=== PATIENT | male | born 1955 | race Two or more races ===

== ENCOUNTER 2023-05-08 18:21 | Inpatient (IN) | payer OTHER, MEDICAID ==
[~2023-05-08] VITALS: Ht 170.2 cm; Wt 64.7 kg
[2023-05-08] MEDS ORDERED: VANCOMYCIN PER PHARMACY 0 MG IV SCH (19:45)
[2023-05-08] MEDS ORDERED: SODIUM CHLORIDE 0.9% 1,000 ML IV ONE (19:45)
[2023-05-08] MEDS ORDERED: VANCOMYCIN 1GM/250ML 250 ML IV ONE (20:00)
[2023-05-08 20:01] LABS: Hematocrit 41.2 % (41.0-53.0); Hemoglobin 13.4 g/dL (13.5-17.5); Mean Corpuscular Hgb Conc. 32.6 g/dL (32.0-36.0); Red Blood Cells 4.79 10^6/uL (4.5-5.90); Red Cell Distribution Width 17.2 % (11.8-14.3); White Blood Cell 21.1 10^3/uL (4.4-10.8)
[2023-05-08 20:08] LABS: Basophils % (manual) 0 (0.0-2.0); Blast Cells 0; Eosinophils % (manual) 0 (0-7); Metamyelocytes % 0; Monocytes % (manual) 0 (0-12); Myelocytes % 0; Promyelocytes % 0; Reactive Lymphocytes 0
[2023-05-08 20:12] LABS: Albumin 3.3 g/dL (3.4-5.0); Calcium 9.3 mg/dL (8.5-10.1)
[2023-05-08 20:17] LABS: BUN/Creatinine Ratio 32.4 (10.0-20.0); Bilirubin, Total 0.7 mg/dL (0.2-1.0); Total Protein 8.1 g/dL (6.4-8.2)
[2023-05-08 21:27] LABS: Potassium 6.5 mmol/L (3.5-5.1)
[2023-05-08 21:30] LABS: Band Neutrophils % (manual) 4; Lymphocytes % (manual) 10 (10.0-50.0)
[2023-05-08] MEDS ORDERED: DEXTROSE (50%) 50ML SYRG IV ONE (21:45)
[2023-05-08] MEDS ORDERED: ALBUTEROL SULF 2.5 MG/0.5ML(0.5%) NEB SOLN NEB ONE (21:45)
[2023-05-08] MEDS ORDERED: SODIUM BICARBONATE 8.4% INJ 50ML SYRINGE IV ONE (21:45)
[2023-05-08] MEDS ORDERED: InsuLIN REG 1unit/0.01ml Soln (100units/ml) IV ONE (21:45)
[2023-05-08] MEDS ORDERED: CALCIUM GLUC 1,000mg/50ml-NS 50 ML IV ONE (21:45)
[2023-05-08] MEDS ORDERED: DEXTROSE 10% 250 ML IV ONE (23:15)
[2023-05-09 02:53] LABS: Urine Bacteria MANY /hpf (None Seen); Urine Blood 1+ /uL (Negative); Urine Mucus FEW (None Seen); Urine Specific Gravity 1.032 (1.001-1.035); Urine WBC 99 /hpf (0 - 3)
[2023-05-09 03:07] LABS: Alcohol, Urine < 3.0 mg/dL (0-10); Amphetamine Screen, Urine NEGATIVE (NEGATIVE); Barbiturate Scree,Urine NEGATIVE (NEGATIVE); Benzodiazephine Screen, Urine NEGATIVE (NEGATIVE); Cannabinoid Screen, Urine NEGATIVE (NEGATIVE); Cocaine Screen, Urine NEGATIVE (NEGATIVE); Opiate Scree,Urine POSITIVE (NEGATIVE); Phencyclidine Screen, Urine NEGATIVE (NEGATIVE)
[2023-05-09] MEDS ORDERED: SODIUM CHLORIDE 0.9% 500 ML IV ONE (03:15)
[2023-05-09] MEDS ORDERED: SODIUM CHLORIDE 0.9% 1,000 ML IV SCH (03:15)
[2023-05-09] MEDS ORDERED: AZITHROMYCIN 500MG/ 250ML 250 ML IV ONE (03:15)
[2023-05-09] MEDS ORDERED: ONDANSETRON HCL 4 MG/2 ML VIAL IV PRN (03:15)
[2023-05-09] MEDS ORDERED: MORPHINE SULFATE INJ 2 MG/ml SYRG IV PRN (03:15)
[2023-05-09] MEDS ORDERED: NITROGLYCERIN 0.4 MG SL TAB SL PRN (03:15)
[2023-05-09] MEDS ORDERED: ACETAMINOPHEN 325 MG TAB PO PRN (03:15)
[2023-05-09] MEDS ORDERED: DEXTROSE (50%) 50ML SYRG IV PRN (03:15)
[2023-05-09] MEDS ORDERED: ALBUTEROL SULF 2.5 MG/0.5ML(0.5%) NEB SOLN NEB PRN (03:15)
[2023-05-09] MEDS: cefTRIAXone 1GM/50ML D5W 50 ML IV SCH (05:34)
[2023-05-09] MEDS ORDERED: FUROSEMIDE 20 MG TAB PO SCH (06:00)
[2023-05-09 06:25] VITALS: BP 116/69
[2023-05-09] MEDS: ACCU-CHEK COMFORT CURVE STRIP VI SCH ×3 (06:31→18:01)
[2023-05-09] MEDS: InsuLIN REG 1unit/0.01ml Soln (100units/ml) SC SCH ×3 (06:31→18:00)
[2023-05-09] MEDS ORDERED: FLEET ENEMA(ADULT) 135 ML PR ONE (06:45)
[2023-05-09 06:57] LABS: BUN/Creatinine Ratio 36.7 (10.0-20.0)
[2023-05-09 09:00] VITALS: BP 108/53
[2023-05-09] MEDS ORDERED: SACUBITRIL-VALSARTAN 24mg/26mg TAB PO SCH (10:00)
[2023-05-09] MEDS: DOCUSATE SOD 100 MG CAP PO SCH ×2 (10:00→22:00)
[2023-05-09] MEDS ORDERED: CLOPIDOGREL BISULFATE 75 MG TAB PO SCH (10:00)
[2023-05-09 10:53] VITALS: BP 108/53
[2023-05-09 13:00] VITALS: BP 104/36
[2023-05-09] MEDS: SODIUM CHLORIDE 0.9% 1,000 ML IV SCH ×2 (13:30→20:10)
[2023-05-09] MEDS ORDERED: HEPARIN SODIUM (PORCINE) 5000 UNITS/ML 1ML VIAL IV ONE (17:00)
[2023-05-09 18:26] LABS: Magnesium 2.7 mg/dL (1.6-2.6); Phosphorus 2.4 mg/dL (2.5-4.90)
[2023-05-09 18:29] LABS: Basophils # (auto) 0 10 ^3/uL (0-0.2); Basophils % (auto) 0.3 % (0.0-2.0); Eosinophils # (auto) 0 10 ^3/uL (0-0.8); Eosinophils % (auto) 0.2 % (0.0-7.0); Hematocrit 31.8 % (41.0-53.0); Hemoglobin 10.5 g/dL (13.5-17.5); Lymphocytes % (auto) 15.2 % (10.0-50.0); Mean Corpuscular Hemoglobin 28.6 pg (28.0-32.0); Mean Corpuscular Hgb Conc. 32.9 g/dL (32.0-36.0); Mean Corpuscular Volume 86.8 fL (80.0-100.0); Monocytes % (auto) 7.8 % (0.0-12.0); Neutrophils # (auto) 10.1 10 ^3/uL (1.6-8.6); Neutrophils % (auto) 76.5 % (37.0-80.0); Red Blood Cells 3.66 10^6/uL (4.5-5.90); Red Cell Distribution Width 17.3 % (11.8-14.3); White Blood Cell 13.2 10^3/uL (4.4-10.8)
[2023-05-09 18:38] LABS: Cholesterol 78 mg/dL (< 200)
[2023-05-09 18:40] LABS: HDL Cholesterol 31 mg/dL (40-59); LDL Cholesterol 46 mg/dL (< 100); Triglycerides 60 mg/dL (< 150)
[2023-05-09 18:41] LABS: INR 1.04 (0.9-1.15); Partial Thromboplastin Time < 20.0 SEC (24.5-34.5)
[2023-05-09 19:27] LABS: Protein, Urine 76.3 mg/dL (0.0-11.9)
[2023-05-09] MEDS: HEPARIN DRIP/D5W 100UNITS/ML 250 ML IV SCH (19:44)
[2023-05-09 22:00] VITALS: BP 105/30
[2023-05-09] MEDS: ATORVASTATIN 20 MG TAB PO SCH (22:00)
[2023-05-10] MEDS: ACCU-CHEK COMFORT CURVE STRIP VI SCH ×4 (01:09→18:12)
[2023-05-10] MEDS: InsuLIN REG 1unit/0.01ml Soln (100units/ml) SC SCH ×4 (01:17→18:00)
[2023-05-10 02:07] LABS: INR 1.1 (0.9-1.15); Partial Thromboplastin Time 37.9 SEC (24.5-34.5)
[2023-05-10] MEDS: HEPARIN DRIP/D5W 100UNITS/ML 250 ML IV SCH ×2 (04:36→16:57)
[2023-05-10 05:00] VITALS: BP 107/51
[2023-05-10] MEDS: SODIUM CHLORIDE 0.9% 1,000 ML IV SCH ×4 (05:15→22:45)
[2023-05-10 07:35] LABS: Albumin 2.2 g/dL (3.4-5.0); Calcium 7.8 mg/dL (8.5-10.1); Potassium 4.8 mmol/L (3.5-5.1)
[2023-05-10 07:39] LABS: BUN/Creatinine Ratio 44.2 (10.0-20.0); Bilirubin, Total 0.4 mg/dL (0.2-1.0); Total Protein 6.4 g/dL (6.4-8.2)
[2023-05-10 07:50] LABS: Basophils # (auto) 0 10 ^3/uL (0-0.2); Basophils % (auto) 0.1 % (0.0-2.0); Eosinophils # (auto) 0 10 ^3/uL (0-0.8); Eosinophils % (auto) 0.1 % (0.0-7.0); Hematocrit 31.5 % (41.0-53.0); Hemoglobin 10.5 g/dL (13.5-17.5); Lymphocytes # (auto) 1.5 10 ^3/uL (0.4-5.4); Lymphocytes % (auto) 11.9 % (10.0-50.0); Mean Corpuscular Hemoglobin 28.7 pg (28.0-32.0); Mean Corpuscular Hgb Conc. 33.3 g/dL (32.0-36.0); Mean Corpuscular Volume 86.3 fL (80.0-100.0); Monocytes # (auto) 0.8 10 ^3/uL (0-1.3); Monocytes % (auto) 6.6 % (0.0-12.0); Neutrophils % (auto) 81.3 % (37.0-80.0); Red Blood Cells 3.65 10^6/uL (4.5-5.90); Red Cell Distribution Width 17.4 % (11.8-14.3); White Blood Cell 12.3 10^3/uL (4.4-10.8)
[2023-05-10 07:53] LABS: % Iron Saturation 17.4 % (20-55)
[2023-05-10 08:47] LABS: INR 1.21 (0.9-1.15)
[2023-05-10] MEDS: cefTRIAXone 1GM/50ML D5W 50 ML IV SCH (09:01)
[2023-05-10] MEDS: DOCUSATE SOD 100 MG CAP PO SCH ×2 (09:01→22:47)
[2023-05-10 09:20] LABS: Folate (Folic Acid) 8.49 ng/mL (5.38-24)
[2023-05-10] MEDS: AZITHROMYCIN 500MG/ 250ML 250 ML IV SCH (09:58)
[2023-05-10 11:13] LABS: INR 1.11 (0.9-1.15); Partial Thromboplastin Time 50.6 SEC (24.5-34.5)
[2023-05-10] MEDS ORDERED: VANCOMYCIN 1GM/250ML 250 ML IV ONE (11:30)
[2023-05-10] MEDS ORDERED: VANCOMYCIN PER PHARMACY 0 MG IV SCH (11:30)
[2023-05-10 16:52] VITALS: BP 117/62
[2023-05-10 17:44] LABS: INR 1.1 (0.9-1.15); Partial Thromboplastin Time 52.4 SEC (24.5-34.5)
[2023-05-10 22:00] VITALS: BP 109/65
[2023-05-10] MEDS: ATORVASTATIN 20 MG TAB PO SCH (22:47)
[2023-05-10 23:24] LABS: INR 1.1 (0.9-1.15)
[2023-05-10 23:34] LABS: Partial Thromboplastin Time 75.3 SEC (24.5-34.5)
[2023-05-11] MEDS: HEPARIN DRIP/D5W 100UNITS/ML 250 ML IV SCH ×2 (00:23→14:35)
[2023-05-11] MEDS: ACCU-CHEK COMFORT CURVE STRIP VI SCH ×4 (00:46→16:58)
[2023-05-11] MEDS: InsuLIN REG 1unit/0.01ml Soln (100units/ml) SC SCH ×5 (00:53→23:45)
[2023-05-11 05:00] VITALS: BP 116/68
[2023-05-11 06:28] LABS: Basophils # (auto) 0 10 ^3/uL (0-0.2); Basophils % (auto) 0.1 % (0.0-2.0); Eosinophils # (auto) 0.1 10 ^3/uL (0-0.8); Eosinophils % (auto) 0.7 % (0.0-7.0); Hematocrit 29.3 % (41.0-53.0); Lymphocytes # (auto) 1.2 10 ^3/uL (0.4-5.4); Mean Corpuscular Hemoglobin 29.3 pg (28.0-32.0); Mean Corpuscular Hgb Conc. 34.3 g/dL (32.0-36.0); Mean Corpuscular Volume 85.5 fL (80.0-100.0); Monocytes # (auto) 0.6 10 ^3/uL (0-1.3); Monocytes % (auto) 5.9 % (0.0-12.0); Neutrophils # (auto) 8.1 10 ^3/uL (1.6-8.6); Neutrophils % (auto) 81.3 % (37.0-80.0); Red Blood Cells 3.42 10^6/uL (4.5-5.90); Red Cell Distribution Width 17.2 % (11.8-14.3)
[2023-05-11 06:30] LABS: INR 1.09 (0.9-1.15); Partial Thromboplastin Time 64.1 SEC (24.5-34.5)
[2023-05-11 07:11] LABS: Potassium 4.6 mmol/L (3.5-5.1)
[2023-05-11 07:18] LABS: Albumin 2.2 g/dL (3.4-5.0); BUN/Creatinine Ratio 51.3 (10.0-20.0); Bilirubin, Total 0.3 mg/dL (0.2-1.0); Calcium 7.8 mg/dL (8.5-10.1); Total Protein 5.8 g/dL (6.4-8.2)
[2023-05-11] MEDS: FERROUS SULFATE 325mg EC TAB PO SCH ×2 (08:53→18:47)
[2023-05-11] MEDS: cefTRIAXone 1GM/50ML D5W 50 ML IV SCH (08:53)
[2023-05-11 09:00] VITALS: BP 109/57
[2023-05-11] MEDS: AZITHROMYCIN 500MG/ 250ML 250 ML IV SCH (10:43)
[2023-05-11] MEDS: DOCUSATE SOD 100 MG CAP PO SCH ×2 (10:43→21:39)
[2023-05-11] MEDS: SODIUM CHLORIDE 0.9% 1,000 ML IV SCH (12:05)
[2023-05-11 13:00] VITALS: BP 99/49
[2023-05-11] MEDS: VANCOMYCIN 1GM/250ML 250 ML IV SCH (14:41)
[2023-05-11 17:00] VITALS: BP 111/56
[2023-05-11] MEDS ORDERED: SODIUM CHLORIDE 0.9% 1,000 ML IV SCH (17:00)
[2023-05-11] MEDS: ATORVASTATIN 20 MG TAB PO SCH (21:39)
[2023-05-11 22:00] VITALS: BP 124/58
[2023-05-12] MEDS: ACCU-CHEK COMFORT CURVE STRIP VI SCH ×5 (04:16→23:58)
[2023-05-12 05:00] VITALS: BP 116/52
[2023-05-12] MEDS: InsuLIN REG 1unit/0.01ml Soln (100units/ml) SC SCH ×3 (06:00→18:00)
[2023-05-12 06:09] LABS: Basophils # (auto) 0 10 ^3/uL (0-0.2); Basophils % (auto) 0.1 % (0.0-2.0); Eosinophils # (auto) 0.2 10 ^3/uL (0-0.8); Eosinophils % (auto) 2.4 % (0.0-7.0); Hemoglobin 9.2 g/dL (13.5-17.5); Lymphocytes # (auto) 1.5 10 ^3/uL (0.4-5.4); Lymphocytes % (auto) 19.6 % (10.0-50.0); Mean Corpuscular Hemoglobin 28.7 pg (28.0-32.0); Mean Corpuscular Hgb Conc. 34.1 g/dL (32.0-36.0); Mean Corpuscular Volume 84.3 fL (80.0-100.0); Monocytes # (auto) 0.6 10 ^3/uL (0-1.3); Monocytes % (auto) 7.7 % (0.0-12.0); Neutrophils # (auto) 5.2 10 ^3/uL (1.6-8.6); Neutrophils % (auto) 70.2 % (37.0-80.0); Red Blood Cells 3.21 10^6/uL (4.5-5.90); Red Cell Distribution Width 17.5 % (11.8-14.3); White Blood Cell 7.5 10^3/uL (4.4-10.8)
[2023-05-12 06:41] LABS: Albumin 1.9 g/dL (3.4-5.0); Calcium 7.6 mg/dL (8.5-10.1); Potassium 4.3 mmol/L (3.5-5.1)
[2023-05-12 06:44] LABS: BUN/Creatinine Ratio 50.4 (10.0-20.0); Bilirubin, Total 0.2 mg/dL (0.2-1.0); Total Protein 5.5 g/dL (6.4-8.2)
[2023-05-12 06:59] LABS: INR 1.08 (0.9-1.15)
[2023-05-12 08:18] LABS: Partial Thromboplastin Time 83.3 SEC (24.5-34.5)
[2023-05-12] MEDS: HEPARIN DRIP/D5W 100UNITS/ML 250 ML IV SCH ×2 (08:35→11:38)
[2023-05-12 09:03] VITALS: BP 119/80
[2023-05-12] MEDS: cefTRIAXone 1GM/50ML D5W 50 ML IV SCH (09:04)
[2023-05-12] MEDS: DOCUSATE SOD 100 MG CAP PO SCH ×2 (09:04→22:26)
[2023-05-12] MEDS: FERROUS SULFATE 325mg EC TAB PO SCH ×2 (09:04→18:06)
[2023-05-12] MEDS: AZITHROMYCIN 500MG/ 250ML 250 ML IV SCH (11:22)
[2023-05-12] MEDS: VANCOMYCIN 1GM/250ML 250 ML IV SCH (13:52)
[2023-05-12 22:00] VITALS: BP 129/49
[2023-05-12] MEDS ORDERED: HYDROcodone-ACET 5/325MG TAB PO ONE (22:15)
[2023-05-12] MEDS: ATORVASTATIN 20 MG TAB PO SCH (22:27)
[2023-05-13] VITALS (9 sets, daily range): BP systolic 99–136; BP diastolic 53–73
[2023-05-13] MEDS: InsuLIN REG 1unit/0.01ml Soln (100units/ml) SC SCH ×4 (00:01→17:50)
[2023-05-13] MEDS: ACCU-CHEK COMFORT CURVE STRIP VI SCH ×3 (06:20→17:49)
[2023-05-13 08:52] LABS: Hematocrit 29.2 % (41.0-53.0); Hemoglobin 9.7 g/dL (13.5-17.5); Mean Corpuscular Hemoglobin 28.5 pg (28.0-32.0); Mean Corpuscular Hgb Conc. 33.3 g/dL (32.0-36.0); Mean Corpuscular Volume 85.6 fL (80.0-100.0); Red Blood Cells 3.41 10^6/uL (4.5-5.90); Red Cell Distribution Width 17.2 % (11.8-14.3); White Blood Cell 6.7 10^3/uL (4.4-10.8)
[2023-05-13] MEDS: DOCUSATE SOD 100 MG CAP PO SCH ×2 (08:53→21:57)
[2023-05-13] MEDS: FERROUS SULFATE 325mg EC TAB PO SCH ×2 (08:53→17:49)
[2023-05-13] MEDS: AZITHROMYCIN 500MG/ 250ML 250 ML IV SCH ×2 (08:54→11:09)
[2023-05-13] MEDS: cefTRIAXone 1GM/50ML D5W 50 ML IV SCH (08:54)
[2023-05-13 09:01] LABS: Band Neutrophils % (manual) 0; Basophils % (manual) 0 (0.0-2.0); Blast Cells 0; Metamyelocytes % 0; Myelocytes % 0; Promyelocytes % 0; Reactive Lymphocytes 0
[2023-05-13 09:18] LABS: Calcium 7.8 mg/dL (8.5-10.1); Potassium 5.1 mmol/L (3.5-5.1)
[2023-05-13 09:21] LABS: BUN/Creatinine Ratio 40.5 (10.0-20.0); Bilirubin, Total 0.2 mg/dL (0.2-1.0); Total Protein 5.9 g/dL (6.4-8.2)
[2023-05-13 09:33] LABS: INR 1.05 (0.9-1.15); Partial Thromboplastin Time 25.2 SEC (24.5-34.5)
[2023-05-13] MEDS ORDERED: IODIXANOL 320MG/ML 100ML BTL IV ONE ×3 (10:26→12:32)
[2023-05-13] MEDS ORDERED: LIDOCAINE 2%HCL (LOCAL ANESTH.) INJ 20ML MDV ONE (10:26)
[2023-05-13] MEDS ORDERED: ANGIOMAX 250 MG VIAL IV ONE ×2 (10:28→12:51)
[2023-05-13] MEDS ORDERED: fentaNYL CITRATE 100 MCG/2 ML VL ONE ×2 (10:29→14:05)
[2023-05-13] MEDS ORDERED: MIDAZOLAM HCL 2MG/2ML 2ml VIAL (1mg/ml) ONE (10:29)
[2023-05-13] MEDS ORDERED: SODIUM CHL 0.9% 50 ML ONE ×2 (10:30→12:51)
[2023-05-13 11:50] LABS: Eosinophils # (auto) 3.5 10 ^3/uL (0-0.8); Eosinophils % (auto) 3.5 % (0.0-7.0); Lymphocytes # (auto) 1.3 10 ^3/uL (0.4-5.4); Lymphocytes % (auto) 19.1 % (10.0-50.0); Monocytes # (auto) 0.5 10 ^3/uL (0-1.3); Monocytes % (auto) 7.8 % (0.0-12.0); Neutrophils # (auto) 4.6 10 ^3/uL (1.6-8.6); Neutrophils % (auto) 68.6 % (37.0-80.0); Nucleated Red Blood Cells % 0.1 %
[2023-05-13] MEDS: VANCOMYCIN 1GM/250ML 250 ML IV SCH (13:00)
[2023-05-13] MEDS ORDERED: HYDROcodone-ACET 5/325MG TAB PO PRN (16:00)
[2023-05-13] MEDS ORDERED: VANCOMYCIN 1GM/250ML 250 ML IV SCH (16:00)
[2023-05-13 17:52] LABS: Eosinophils % (manual) 4 (0-7); Lymphocytes % (manual) 19 (10.0-50.0); Monocytes % (manual) 7 (0-12)
[2023-05-13] MEDS: ATORVASTATIN 20 MG TAB PO SCH (21:57)
[2023-05-14] MEDS: ACCU-CHEK COMFORT CURVE STRIP VI SCH ×4 (00:52→17:42)
[2023-05-14] MEDS: InsuLIN REG 1unit/0.01ml Soln (100units/ml) SC SCH ×4 (00:52→17:42)
[2023-05-14 05:00] VITALS: BP 114/55
[2023-05-14 05:57] LABS: Basophils # (auto) 0 10 ^3/uL (0-0.2); Basophils % (auto) 0.3 % (0.0-2.0); Eosinophils # (auto) 0.3 10 ^3/uL (0-0.8); Hematocrit 28.4 % (41.0-53.0); Hemoglobin 9.3 g/dL (13.5-17.5); Lymphocytes # (auto) 1.3 10 ^3/uL (0.4-5.4); Lymphocytes % (auto) 15.5 % (10.0-50.0); Mean Corpuscular Hemoglobin 29.3 pg (28.0-32.0); Mean Corpuscular Hgb Conc. 32.8 g/dL (32.0-36.0); Mean Corpuscular Volume 89.4 fL (80.0-100.0); Monocytes # (auto) 0.7 10 ^3/uL (0-1.3); Monocytes % (auto) 8.5 % (0.0-12.0); Neutrophils # (auto) 5.9 10 ^3/uL (1.6-8.6); Neutrophils % (auto) 71.7 % (37.0-80.0); Nucleated Red Blood Cells % 0.1 %; Red Blood Cells 3.18 10^6/uL (4.5-5.90); Red Cell Distribution Width 16.8 % (11.8-14.3); White Blood Cell 8.2 10^3/uL (4.4-10.8)
[2023-05-14 06:25] LABS: BUN/Creatinine Ratio 38.3 (10.0-20.0); Potassium 4.6 mmol/L (3.5-5.1)
[2023-05-14 06:26] LABS: Albumin 1.8 g/dL (3.4-5.0); Bilirubin, Total 0.3 mg/dL (0.2-1.0); Calcium 7.4 mg/dL (8.5-10.1); Total Protein 5.5 g/dL (6.4-8.2)
[2023-05-14 09:00] VITALS: BP 123/55
[2023-05-14] MEDS: FERROUS SULFATE 325mg EC TAB PO SCH ×2 (09:12→17:43)
[2023-05-14] MEDS: DOCUSATE SOD 100 MG CAP PO SCH (09:13)
[2023-05-14] MEDS: cefTRIAXone 1GM/50ML D5W 50 ML IV SCH (09:26)
[2023-05-14 17:00] VITALS: BP 108/55
[2023-05-14 18:03] VITALS: BP 112/55
== END 2023-05-14 20:09 | DRG 853 ==
LOC: EDBD 18:21 → ER 18:28 → TELE 05-09 03:06 → TELE-WESTW 05-09 09:02
PROVIDERS: ADMIT Nurse Practitioner; ATTEND Family Medicine
PROC: 047K3ZZ Dilation of Right Femoral Artery, Percutaneous Approach (ICD-10-PCS; principal; 2023-05-13)
PROC: 047C3ZZ Dilation of Right Common Iliac Artery, Percutaneous Approach (ICD-10-PCS; 2023-05-13)
PROC: 05HC33Z Insertion of Infusion Device into Left Basilic Vein, Percutaneous Approach (ICD-10-PCS; 2023-05-14)
PROC: B54NZZA Ultrasonography of Left Upper Extremity Veins, Guidance (ICD-10-PCS; 2023-05-14)
DX: A41.9 Sepsis, unspecified organism (principal); G93.41 Metabolic encephalopathy; J18.9 Pneumonia, unspecified organism; J96.01 Acute respiratory failure with hypoxia; R65.21 Severe sepsis with septic shock; N17.9 Acute kidney failure, unspecified; N39.0 Urinary tract infection, site not specified; N18.4 Chronic kidney disease, stage 4 (severe); I42.9 Cardiomyopathy, unspecified; I13.0 Hypertensive heart and chronic kidney disease with heart failure and stage 1 through stage 4 chronic kidney disease, or unspecified chronic kidney disease; I50.20 Unspecified systolic (congestive) heart failure; Z20.822 Contact with and (suspected) exposure to COVID-19; E87.5 Hyperkalemia; E78.00 Pure hypercholesterolemia, unspecified; I27.21 Secondary pulmonary arterial hypertension; I95.9 Hypotension, unspecified; I99.8 Other disorder of circulatory system; E11.22 Type 2 diabetes mellitus with diabetic chronic kidney disease; I25.10 Atherosclerotic heart disease of native coronary artery without angina pectoris; E11.51 Type 2 diabetes mellitus with diabetic peripheral angiopathy without gangrene; K59.00 Constipation, unspecified; Z95.0 Presence of cardiac pacemaker; Z86.73 Personal history of transient ischemic attack (TIA), and cerebral infarction without residual deficits; Z80.9 Family history of malignant neoplasm, unspecified
CPT/HCPCS: 36415; 37224; 70450; 71045; 71260; 74177; 76775; 76937; 76942; 80048; 80053; 80061; 80202; 80307; 81001; 82140; 82306; 82570; 82607; 82746; 82962; 83036; 83540; 83550; 83605; 83690; 83735; 83880; 83970; 84100; 84132; 84156; 84300; 84443; 84484; 85007; 85025; 85027; 85379; 85610; 85730; 87040; 87077; 87086; 87088; 87186; 87426; 93005; 93306; 93925; 94640; 97163; 99152; 99153; C1725; C1769; G0378; J0696; J1815; J2250; Q9967

== ENCOUNTER 2023-05-27 21:47 | Inpatient (IN) | payer OTHER, MEDICAID ==
[~2023-05-27] VITALS: Ht 175.3 cm; Wt 62.0 kg
[2023-05-27 22:28] LABS: Basophils # (auto) 0 10 ^3/uL (0-0.2); Basophils % (auto) 0.4 % (0.0-2.0); Eosinophils # (auto) 0.2 10 ^3/uL (0-0.8); Eosinophils % (auto) 3.3 % (0.0-7.0); Hematocrit 28.4 % (41.0-53.0); Hemoglobin 9.3 g/dL (13.5-17.5); Lymphocytes # (auto) 1.1 10 ^3/uL (0.4-5.4); Lymphocytes % (auto) 18.6 % (10.0-50.0); Mean Corpuscular Hemoglobin 29.3 pg (28.0-32.0); Mean Corpuscular Hgb Conc. 32.8 g/dL (32.0-36.0); Mean Corpuscular Volume 89.3 fL (80.0-100.0); Monocytes # (auto) 0.6 10 ^3/uL (0-1.3); Monocytes % (auto) 10.1 % (0.0-12.0); Neutrophils # (auto) 3.9 10 ^3/uL (1.6-8.6); Neutrophils % (auto) 67.6 % (37.0-80.0); Nucleated Red Blood Cells % 0.2 %; Red Blood Cells 3.18 10^6/uL (4.5-5.90); Red Cell Distribution Width 17.8 % (11.8-14.3); White Blood Cell 5.8 10^3/uL (4.4-10.8)
[2023-05-27 22:42] LABS: INR 1.1 (0.9-1.15); Partial Thromboplastin Time 27.3 SEC (24.5-34.5)
[2023-05-27 22:43] LABS: Potassium 5.1 mmol/L (3.5-5.1)
[2023-05-27 22:52] VITALS: PULSE 93; RESP 18; O2SAT 93
[2023-05-27 22:55] LABS: Albumin 2.3 g/dL (3.4-5.0); Bilirubin, Total 0.2 mg/dL (0.2-1.0); Calcium 8.3 mg/dL (8.5-10.1); Magnesium 2.2 mg/dL (1.6-2.6); Total Protein 7.3 g/dL (6.4-8.2)
[2023-05-28] MEDS ORDERED: FUROSEMIDE 20 MG/2 ML VIAL IV ONE (03:00)
[2023-05-28] MEDS ORDERED: VANCOMYCIN 1GM/250ML 250 ML IV ONE (03:00)
[2023-05-28] MEDS ORDERED: HYDROcodone-ACET 10/325MG TAB PO ONE (05:00)
[2023-05-28 05:59] LABS: Urine Amorphous Crystal FEW /hpf (None Seen); Urine Bacteria FEW /hpf (None Seen); Urine Blood Negative /uL (Negative); Urine Hyaline Cast FEW /lpf (0 - 2); Urine Specific Gravity 1.017 (1.001-1.035); Urine WBC 2 /hpf (0 - 3)
[2023-05-28 08:00] VITALS: PULSE 74; RESP 16; O2SAT 98
[2023-05-28] MEDS ORDERED: MORPHINE SULFATE INJ 2 MG/ml SYRG IV PRN (10:00)
[2023-05-28] MEDS ORDERED: NITROGLYCERIN 0.4 MG SL TAB SL PRN (10:00)
[2023-05-28] MEDS ORDERED: IPRATROPIUM BROM 0.5 MG/2.5ML INH SOL NEB PRN (10:45)
[2023-05-28] MEDS ORDERED: BISACODYL 10 MG RECT SUPP PR ONE (10:45)
[2023-05-28] MEDS ORDERED: ALBUTEROL SULF 2.5 MG/0.5ML(0.5%) NEB SOLN NEB PRN (10:45)
[2023-05-28] MEDS ORDERED: VANCOMYCIN PER PHARMACY 0 MG IV SCH (11:00)
[2023-05-28] MEDS ORDERED: DEXTROSE (50%) 50ML SYRG IV PRN (11:00)
[2023-05-28 11:12] VITALS: BP 115/72; PULSE 97; RESP 27; TEMP 97.8; O2SAT 94
[2023-05-28] MEDS: ACCU-CHEK COMFORT CURVE STRIP VI SCH ×3 (11:30→21:39)
[2023-05-28] MEDS: InsuLIN REG 1unit/0.01ml Soln (100units/ml) SC SCH ×3 (12:13→21:54)
[2023-05-28 13:15] VITALS: O2SAT 98
[2023-05-28] MEDS: HYDROcodone-ACET 5/325MG TAB PO PRN (15:43)
[2023-05-28 18:20] VITALS: O2SAT 99
[2023-05-28 19:22] VITALS: PULSE 103; RESP 18; O2SAT 94
[2023-05-28] MEDS ORDERED: VANCOMYCIN 1GM/250ML 250 ML IV SCH (21:00)
[2023-05-28] MEDS: SACUBITRIL-VALSARTAN 24mg/26mg TAB PO SCH (21:48)
[2023-05-28] MEDS: DOCUSATE SOD 100 MG CAP PO SCH (21:48)
[2023-05-28] MEDS: ATORVASTATIN 20 MG TAB PO SCH (21:48)
[2023-05-29 06:10] LABS: Basophils # (auto) 0 10 ^3/uL (0-0.2); Basophils % (auto) 0.5 % (0.0-2.0); Eosinophils # (auto) 0.2 10 ^3/uL (0-0.8); Eosinophils % (auto) 4.2 % (0.0-7.0); Hematocrit 26.8 % (41.0-53.0); Hemoglobin 8.9 g/dL (13.5-17.5); Lymphocytes # (auto) 1.5 10 ^3/uL (0.4-5.4); Lymphocytes % (auto) 26.8 % (10.0-50.0); Mean Corpuscular Hemoglobin 29.4 pg (28.0-32.0); Mean Corpuscular Hgb Conc. 33.4 g/dL (32.0-36.0); Monocytes # (auto) 0.7 10 ^3/uL (0-1.3); Neutrophils # (auto) 3.2 10 ^3/uL (1.6-8.6); Neutrophils % (auto) 56.5 % (37.0-80.0); Nucleated Red Blood Cells % 0.1 %; Red Blood Cells 3.04 10^6/uL (4.5-5.90); Red Cell Distribution Width 17.6 % (11.8-14.3); White Blood Cell 5.6 10^3/uL (4.4-10.8)
[2023-05-29 06:15] LABS: Albumin 2.1 g/dL (3.4-5.0); Calcium 8.1 mg/dL (8.5-10.1); Potassium 4.9 mmol/L (3.5-5.1)
[2023-05-29 06:20] LABS: BUN/Creatinine Ratio 28.7 (10.0-20.0); Bilirubin, Total 0.4 mg/dL (0.2-1.0); Total Protein 6.4 g/dL (6.4-8.2)
[2023-05-29] MEDS: ACCU-CHEK COMFORT CURVE STRIP VI SCH ×4 (06:44→22:12)
[2023-05-29] MEDS: InsuLIN REG 1unit/0.01ml Soln (100units/ml) SC SCH ×4 (06:44→22:20)
[2023-05-29] MEDS: DOCUSATE SOD 100 MG CAP PO SCH ×2 (10:00→22:17)
[2023-05-29] MEDS ORDERED: DOCUSATE CALCIUM 240 MG CAP PO SCH (10:00)
[2023-05-29] MEDS: SACUBITRIL-VALSARTAN 24mg/26mg TAB PO SCH ×2 (10:00→22:26)
[2023-05-29] MEDS ORDERED: FUROSEMIDE 40 MG/4 ML VIAL IV SCH (10:00)
[2023-05-29] MEDS ORDERED: levoFLOXacin 750MG 150 ML IV SCH (10:00)
[2023-05-29] MEDS: FAMOTIDINE 20 MG TAB PO SCH (10:00)
[2023-05-29] MEDS: ENOXAPARIN SOD 40 MG/0.4 ML SYRINGE SC SCH (10:01)
[2023-05-29] MEDS: CLOPIDOGREL BISULFATE 75 MG TAB PO SCH (10:01)
[2023-05-29] MEDS: HYDROcodone-ACET 5/325MG TAB PO PRN (11:02)
[2023-05-29 14:15] VITALS: O2SAT 99
[2023-05-29] MEDS ORDERED: POLYETHYLENE GLYCOL 17 GM PWDR PO PRN (15:00)
[2023-05-29] MEDS: FUROSEMIDE 40 MG/4 ML VIAL IV SCH ×2 (18:54→22:17)
[2023-05-29 19:30] VITALS: PULSE 77; RESP 18; O2SAT 98
[2023-05-29] MEDS: CARVEDILOL 3.125 MG TAB PO SCH (22:17)
[2023-05-29] MEDS: MORPHINE SULFATE INJ 2 MG/ml SYRG IV PRN (22:18)
[2023-05-29] MEDS: ATORVASTATIN 20 MG TAB PO SCH (22:26)
[2023-05-29 23:00] VITALS: PULSE 75
[2023-05-30] VITALS (10 sets, daily range): BP systolic 96–123; BP diastolic 54–63; PULSE 72–88; RESP 14–18; TEMP 97.6–98.5; O2SAT 94–97
[2023-05-30] MEDS ORDERED: CEFT1INJ6 IJ (02:51)
[2023-05-30] MEDS ORDERED: SACU1TAB PO (02:53)
[2023-05-30] MEDS ORDERED: ATO40T PO (02:53)
[2023-05-30] MEDS ORDERED: FURO1TAB33 GT (02:54)
[2023-05-30] MEDS ORDERED: CLOP75TA70 PO (02:54)
[2023-05-30] MEDS ORDERED: FER325T PO (03:00)
[2023-05-30] MEDS ORDERED: DOCU-94 PO (03:01)
[2023-05-30] MEDS ORDERED: HYDR-4902 PO (03:03)
[2023-05-30] MEDS ORDERED: HYDR1TAB97 PO (03:03)
[2023-05-30] MEDS ORDERED: ZINC220C8 PO (03:04)
[2023-05-30] MEDS ORDERED: VITA400T4 PO (03:05)
[2023-05-30] MEDS ORDERED: ASCO500T11 GT (03:06)
[2023-05-30 05:56] LABS: Basophils # (auto) 0 10 ^3/uL (0-0.2); Basophils % (auto) 0.4 % (0.0-2.0); Eosinophils # (auto) 0.2 10 ^3/uL (0-0.8); Eosinophils % (auto) 3.4 % (0.0-7.0); Hemoglobin 9.3 g/dL (13.5-17.5); Lymphocytes # (auto) 1.5 10 ^3/uL (0.4-5.4); Lymphocytes % (auto) 27.4 % (10.0-50.0); Mean Corpuscular Hemoglobin 29.1 pg (28.0-32.0); Mean Corpuscular Hgb Conc. 33.3 g/dL (32.0-36.0); Mean Corpuscular Volume 87.4 fL (80.0-100.0); Monocytes # (auto) 0.7 10 ^3/uL (0-1.3); Neutrophils # (auto) 3.1 10 ^3/uL (1.6-8.6); Neutrophils % (auto) 55.8 % (37.0-80.0); Nucleated Red Blood Cells % 0.1 %; Red Blood Cells 3.21 10^6/uL (4.5-5.90); Red Cell Distribution Width 17.1 % (11.8-14.3); White Blood Cell 5.5 10^3/uL (4.4-10.8)
[2023-05-30 06:12] LABS: Potassium 4.6 mmol/L (3.5-5.1)
[2023-05-30 06:20] LABS: Albumin 2.1 g/dL (3.4-5.0); Bilirubin, Total 0.3 mg/dL (0.2-1.0); Calcium 8.2 mg/dL (8.5-10.1); Total Protein 6.6 g/dL (6.4-8.2)
[2023-05-30] MEDS: InsuLIN REG 1unit/0.01ml Soln (100units/ml) SC SCH ×4 (06:23→22:28)
[2023-05-30] MEDS: ACCU-CHEK COMFORT CURVE STRIP VI SCH ×4 (06:24→22:24)
[2023-05-30] MEDS: HYDROcodone-ACET 5/325MG TAB PO PRN (06:28)
[2023-05-30] MEDS: EMPAGLIFLOZIN 10 MG TAB PO SCH (06:28)
[2023-05-30] MEDS: cefTRIAXone 1GM/50ML D5W 50 ML IV SCH (10:03)
[2023-05-30] MEDS: FUROSEMIDE 40 MG/4 ML VIAL IV SCH ×2 (10:06→22:23)
[2023-05-30] MEDS: DOCUSATE SOD 100 MG CAP PO SCH ×2 (10:06→22:23)
[2023-05-30] MEDS: CARVEDILOL 3.125 MG TAB PO SCH ×2 (10:08→22:00)
[2023-05-30] MEDS: FAMOTIDINE 20 MG TAB PO SCH (10:08)
[2023-05-30] MEDS: CLOPIDOGREL BISULFATE 75 MG TAB PO SCH (10:08)
[2023-05-30] MEDS: SACUBITRIL-VALSARTAN 24mg/26mg TAB PO SCH ×2 (10:08→22:23)
[2023-05-30] MEDS: ENOXAPARIN SOD 40 MG/0.4 ML SYRINGE SC SCH (10:08)
[2023-05-30] MEDS: MORPHINE SULFATE INJ 2 MG/ml SYRG IV PRN ×2 (10:31→15:39)
[2023-05-30] MEDS: ATORVASTATIN 20 MG TAB PO SCH (22:23)
[2023-05-31] VITALS (8 sets, daily range): BP systolic 106–123; BP diastolic 48–63; PULSE 55–92; RESP 14–19; TEMP 98–98.4; O2SAT 92–97
[2023-05-31] MEDS: EMPAGLIFLOZIN 10 MG TAB PO SCH (06:31)
[2023-05-31] MEDS: ACCU-CHEK COMFORT CURVE STRIP VI SCH ×2 (06:31→11:52)
[2023-05-31] MEDS: InsuLIN REG 1unit/0.01ml Soln (100units/ml) SC SCH ×2 (06:31→11:58)
[2023-05-31] MEDS: HYDROcodone-ACET 5/325MG TAB PO PRN (06:47)
[2023-05-31] MEDS: cefTRIAXone 1GM/50ML D5W 50 ML IV SCH (08:32)
[2023-05-31] MEDS: FUROSEMIDE 40 MG/4 ML VIAL IV SCH (09:35)
[2023-05-31] MEDS: SACUBITRIL-VALSARTAN 24mg/26mg TAB PO SCH (09:36)
[2023-05-31] MEDS: ENOXAPARIN SOD 40 MG/0.4 ML SYRINGE SC SCH (09:36)
[2023-05-31] MEDS: FAMOTIDINE 20 MG TAB PO SCH (09:36)
[2023-05-31] MEDS: DOCUSATE SOD 100 MG CAP PO SCH (09:36)
[2023-05-31] MEDS: CLOPIDOGREL BISULFATE 75 MG TAB PO SCH (09:36)
[2023-05-31] MEDS: CARVEDILOL 3.125 MG TAB PO SCH (09:36)
== END 2023-05-31 16:46 | DRG 291 ==
LOC: EDBD 21:47 → ER 21:47 → TELE 05-28 10:30 → TELE-WESTW 05-29 21:36
PROVIDERS: ADMIT Nurse Practitioner Acute Care; ATTEND Nurse Practitioner Acute Care
DX: I11.0 Hypertensive heart disease with heart failure (principal); E43 Unspecified severe protein-calorie malnutrition; I50.23 Acute on chronic systolic (congestive) heart failure; J96.21 Acute and chronic respiratory failure with hypoxia; J18.9 Pneumonia, unspecified organism; J44.0 Chronic obstructive pulmonary disease with (acute) lower respiratory infection; I42.9 Cardiomyopathy, unspecified; E11.51 Type 2 diabetes mellitus with diabetic peripheral angiopathy without gangrene; K59.00 Constipation, unspecified; I25.10 Atherosclerotic heart disease of native coronary artery without angina pectoris; N30.90 Cystitis, unspecified without hematuria; Z95.1 Presence of aortocoronary bypass graft; Z79.02 Long term (current) use of antithrombotics/antiplatelets; I25.2 Old myocardial infarction; I69.398 Other sequelae of cerebral infarction; Z68.20 Body mass index [BMI] 20.0-20.9, adult; Z95.0 Presence of cardiac pacemaker; I69.30 Unspecified sequelae of cerebral infarction
CPT/HCPCS: 36415; 71045; 80053; 81001; 82962; 83735; 83880; 84484; 85025; 85610; 85730; 93005; 96365; 96375; G0378; J0696; J1815; J1956